=== PATIENT | male | born 1955 | race Caucasian/White ===

== ENCOUNTER 2016-06-19 13:05 | Outpatient (CLI) | payer OTHER | END 2016-06-19 13:06 | disposition home or self-care (01) | DX: I10 Essential (primary) hypertension (principal) ==

== ENCOUNTER 2017-04-02 09:02 | Emergency (ER) | payer OTHER ==
[2017-04-02 09:48] LABS: BASOPHILS % (AUTO) 0.2 %; EOSINOPHILS % (AUTO) 0.2 %; HCT - HEMATOCRIT 49.9 % (42.0-52.0); HGB - HEMOGLOBIN 17.5 g/dL (14.0-18.0); LYMPHOCYTES # (AUTO) 0.9 10^3/uL (1.5-3.5); LYMPHOCYTES % (AUTO) 6.8 %; MEAN CORPUSCULAR HEMOGLOBIN 30.7 pg (27.0-31.0); MEAN CORPUSCULAR VOLUME 87.6 fL (80.0-94.0); MEAN PLATELET VOLUME 7.4 fL (7.4-11.4); MONOCYTES # (AUTO) 0.5 10^3/uL (0.0-1.0); MONOCYTES % (AUTO) 4.1 %; NEUTROPHILS # (AUTO) 11.8 10^3/uL (1.5-6.6); NEUTROPHILS % (AUTO) 88.7 %; RED CELL DISTRIBUTION WIDTH 13.7 % (12.0-15.0); UNCORRECTED WHITE BLOOD COUNT 13.3 x10^3/uL; WHITE BLOOD COUNT 13.3 x10^3/uL (4.8-10.8)
[2017-04-02 10:01] LABS: ALBUMIN/GLOBULIN RATIO 1.6 (1.0-2.2); BILIRUBIN,TOTAL 0.7 mg/dL (0.2-1.0); CALCIUM 9.6 mg/dL (8.5-10.3); POTASSIUM 4.2 mmol/L (3.5-5.0); TOTAL PROTEIN 7.4 g/dL (6.7-8.2)
--- NOTE | 2017-04-02 10:20 | ED Physician Documentation ---
PD HPI ABD PAIN - Stated complaint Stated Complaint: ABD PX - Chief complaint Chief Complaint: Abd Pain PD PAST MEDICAL HISTORY - Past Medical History Past Medical History: Yes Cardiovascular: Hypertension Other Past Medical History: melanoma - Past Surgical History Past Surgical History: Yes Derm: Skin cancer surgery - Present Medications Home Medications: Ambulatory Orders Medication Instructions Recorded Confirmed Carbamazepine [Equetro] 200 mg PO DAILY 04/02/17 04/02/17 Lisinopril 20 mg PO DAILY 04/02/17 04/02/17 Multivitamin [Multiple Vitamins] 1 each PO DAILY 04/02/17 04/02/17 [place]-3 Fatty Acids/Fish Oil 1 cap PO DAILY 04/02/17 04/02/17 [[place]-3 Fish Oil 1,000 mg Sfgl] - Allergies Allergies/Adverse Reactions: Allergies Allergy/AdvReac Type Severity Reaction Status Date / Time No Known Drug Allergies Allergy Verified 04/02/17 09:07 - Social History Does the pt smoke?: No Smoking Status: Never smoker Results - Vitals Vitals: Vital Signs - 24 hr 04/02/17 04/02/17 09:08 11:05 Temperature 36.5 C Heart Rate 85 86 Respiratory 16 15 Rate Blood Pressure 174/94 H 138/74 H O2 Saturation 97 95 Oxygen O2 Source Room air - Labs Labs: Laboratory Tests 04/02/17 04/02/17 04/02/17 09:40 09:40 10:20 WBC 13.3 H RBC 5.70 Hgb 17.5 Hct 49.9 MCV 87.6 MCH 30.7 MCHC 35.0 RDW 13.7 Plt Count 134 MPV 7.4 Neut # 11.8 H Lymph # 0.9 L [place] # 0.5 Eos # 0.0 Baso # 0.0 Absolute Nucleated RBC 0.00 Nucleated RBC % 0.0 Sodium 133 L Potassium 4.2 Chloride 99 L Carbon Dioxide 22 Anion Gap 12.0 BUN 14 Creatinine 1.0 Estimated GFR (MDRD) 76 L Glucose 138 H Calcium 9.6 Total Bilirubin 0.7 AST 25 ALT 31 Alkaline Phosphatase 40 L Total Protein 7.4 Albumin 4.6 Globulin 2.8 Albumin/Globulin Ratio 1.6 Lipase 21 L Urine Color YELLOW Urine Clarity CLEAR Urine pH 6.5 Ur Specific [place] 1.020 Urine Protein NEGATIVE Urine Glucose (UA) NEGATIVE Urine Ketones NEGATIVE Urine Occult Blood TRACE-INTA Urine Nitrite NEGATIVE Urine Bilirubin NEGATIVE Urine Urobilinogen 0.2 (NORMAL) Ur Leukocyte Esterase NEGATIVE Ur Microscopic Review NOT INDICATED Urine Culture Comments NOT INDICATED PD MEDICAL DECISION MAKING - ED course Complexity details: d/w patient ED course: Pt with almost a complete resolution of his presenting symptoms while in the ER. he did urinate w/o problems here. Did have an elevated WBC count but has no signs of infection. Will hold on ABD CT for now. discuss return precautions. Departure - Departure Disposition: 01 Home, Self Care Clinical Impression: Abdominal pain Qualifiers: Abdominal location: generalized Qualified Code(s): R10.84 - Generalized abdominal pain Condition: Good Instructions: ED Abdominal Pain Unkn Cause Follow-Up: primary,care provider [Other] Comments: Return to the ER for any new or worsening symptoms.
[2017-04-02 10:29] LABS: BILIRUBIN,URINE NEGATIVE (NEGATIVE); PH,URINE 6.5 PH (5.0-7.5); UA CHARGE (STRIP ONLY) YES; UR CULTURE IF IND NOT INDICATED
[2017-04-02 11:05] VITALS: BP 138/74
== END 2017-04-02 11:51 | disposition home or self-care (01) ==
LOC: ED 09:02
DX: R10.84 Generalized abdominal pain (principal); D72.829 Elevated white blood cell count, unspecified; I10 Essential (primary) hypertension; Z85.828 Personal history of other malignant neoplasm of skin
CPT/HCPCS: 36415; 80053; 81001; 81003; 83690; 85025; 87086; 99283

== ENCOUNTER 2019-05-05 16:14 | Emergency (ER) | payer OTHER ==
--- NOTE | 2019-05-05 16:26 | ED Physician Documentation ---
PD HPI CHEST PAIN - Stated complaint Stated Complaint: CHEST DISCOMFORT - Chief complaint Chief Complaint: Cardiac - History obtained from History obtained from: Patient - History of Present Illness Timing - onset: Other (63-year-old gentleman with history of hypertension has had waxing and waning chest pain this week. It is never been severe. No history of [place] or coronary disease. He is had some pain between the shoulder blades as well.) Review of Systems Ten Systems: 10 systems reviewed and negative Constitutional: reports: Fatigue. denies: Fever, Chills Throat: denies: Sore throat Cardiac: reports: Chest pain / pressure. denies: Palpitations, Pedal edema Respiratory: denies: Dyspnea PD PAST MEDICAL HISTORY - Past Medical History Past Medical History: Yes Cardiovascular: Hypertension - Past Surgical History Past Surgical History: Yes Derm: Skin cancer surgery - Present Medications Home Medications: Ambulatory Orders Medication Instructions Recorded Confirmed Carbamazepine [Equetro] 200 mg PO DAILY 04/02/17 04/02/17 Lisinopril 20 mg PO DAILY 04/02/17 04/02/17 Multivitamin [Multiple Vitamins] 1 each PO DAILY 04/02/17 04/02/17 [place]-3 Fatty Acids/Fish Oil 1 cap PO DAILY 04/02/17 04/02/17 [[place]-3 Fish Oil 1,000 mg Sfgl] - Allergies Allergies/Adverse Reactions: Allergies Allergy/AdvReac Type Severity Reaction Status Date / Time No Known Drug Allergies Allergy Verified 05/05/19 16:22 - Social History Does the pt smoke?: No Smoking Status: Never smoker - Family History Family history: reports: Non contributory PD ED PE NORMAL - Vitals Vital signs reviewed: Yes - General General: Alert and oriented X 3, No acute distress - HEENT HEENT: PERRL, EOMI - Neck Neck: Supple, no meningeal sign, No bony TTP - Cardiac Cardiac: RRR, No murmur - Respiratory Respiratory: No respiratory distress, Clear bilaterally - Abdomen Abdomen: Soft, Non tender - Back Back: No CVA TTP, No spinal TTP - Derm Derm: Normal color, Warm and dry - Extremities Extremities: No edema, No calf tenderness / cord - Neuro Neuro: Alert and oriented X 3, Normal speech Results - Vitals Vitals: Vital Signs - 24 hr 05/05/19 16:22 Temperature 36.8 C Heart Rate 69 Respiratory 17 Rate O2 Saturation 98 Oxygen O2 Source Room air - EKG (time done) 1619 Rate: Rate (enter#) (71) Rhythm: NSR [place]: Normal Intervals: Normal [place] QRS: LVH Ischemia: Other (Concerning anterior ST elevation with possible reciprocal inferior depression albeit mild, some anterior Q waves as well.) - Labs Labs: Laboratory Tests 05/05/19 05/05/19 05/05/19 16:34 16:34 16:34 WBC 6.3 RBC 5.47 Hgb 16.9 Hct 48.5 MCV 88.7 MCH 30.9 MCHC 34.8 RDW 12.7 Plt Count 156 MPV 8.6 Neut # (Auto) 4.5 Lymph # (Auto) 1.2 L [place] # (Auto) 0.4 Eos # (Auto) 0.1 Baso # (Auto) 0.0 Absolute Nucleated RBC 0.00 Nucleated RBC % 0.0 PT 12.5 INR 1.1 Sodium 135 Potassium 4.1 Chloride 97 L Carbon Dioxide 29 Anion Gap 9.0 BUN 12 Creatinine 1.0 Estimated GFR (MDRD) 75 L Glucose 184 H Calcium 9.2 Total Bilirubin 0.6 AST 22 ALT 23 Alkaline Phosphatase 48 Total Protein 7.2 Albumin 4.5 Globulin 2.7 Albumin/Globulin Ratio 1.7 Lipase 31 PD MEDICAL DECISION MAKING - ED course ED course: 63-year-old gentleman with somewhat atypical symptoms but pretty concerning EKG for an anterior STEMI and a code STEMI was called at approximately 4:25 PM for transport to [facility]. Accepted by Dr. Garcia to [facility] ED at 4:35 PM. Given aspirin, heparin bolus and drip, metoprolol. Departure - Departure Disposition: 02 Transfer Acute Care Hosp Clinical Impression: STEMI (ST elevation myocardial infarction) Qualifiers: Involved coronary artery: unspecified coronary artery Qualified Code(s): I21.3 - ST elevation (STEMI) myocardial infarction of unspecified site Condition: Serious
[2019-05-05] MEDS ORDERED: METOPROLOL TARTRATE 50 MG TABLET PO STA (16:27)
[2019-05-05] MEDS ORDERED: ASPIRIN CHEW 81 MG TABLET PO STA (16:27)
[2019-05-05] MEDS ORDERED: HEPARIN 25000UNITS/500ML (D5W) 25,000 UNIT/500 ML BAG IV STA (16:27)
[2019-05-05 16:43] LABS: BASOPHILS % (AUTO) 0.2 %; EOSINOPHILS # (AUTO) 0.1 10^3/uL (0.0-0.7); HGB - HEMOGLOBIN 16.9 g/dL (14.0-18.0); LYMPHOCYTES # (AUTO) 1.2 10^3/uL (1.5-3.5); LYMPHOCYTES % (AUTO) 19.8 %; MEAN CORPUSCULAR HEMOGLOBIN 30.9 pg (27.0-31.0); MEAN CORPUSCULAR HGB CONC 34.8 g/dL (32.0-36.0); MEAN CORPUSCULAR VOLUME 88.7 fL (80.0-94.0); MEAN PLATELET VOLUME 8.6 fL (7.4-11.4); MONOCYTES # (AUTO) 0.4 10^3/uL (0.0-1.0); MONOCYTES % (AUTO) 6.9 %; NEUTROPHILS # (AUTO) 4.5 10^3/uL (1.5-6.6); NEUTROPHILS % (AUTO) 71.6 %; PLT - PLATELET COUNT 156 10^3/uL (130-450); RED BLOOD COUNT 5.47 10^6/uL (4.70-6.10); RED CELL DISTRIBUTION WIDTH 12.7 % (12.0-15.0); WHITE BLOOD COUNT 6.3 x10^3/uL (4.8-10.8)
[2019-05-05 16:44] LABS: INR 1.1 (0.8-1.2); PT - PROTHROMBIN TIME 12.5 secs (9.9-12.6)
[2019-05-05 16:56] LABS: ALBUMIN 4.5 g/dL (3.2-5.5); ALBUMIN/GLOBULIN RATIO 1.7 (1.0-2.2); BILIRUBIN,TOTAL 0.6 mg/dL (0.2-1.0); CALCIUM 9.2 mg/dL (8.5-10.3); TOTAL PROTEIN 7.2 g/dL (6.7-8.2)
[2019-05-05 17:07] VITALS: BP 185/96
== END 2019-05-05 17:11 | disposition short-term general hospital (02) ==
LOC: ED 16:14
DX: I21.3 ST elevation (STEMI) myocardial infarction of unspecified site (principal); I10 Essential (primary) hypertension
CPT/HCPCS: 36415; 80053; 83690; 84484; 85025; 85610; 93005; 96374; 96375; 99285; A9270

== ENCOUNTER 2019-05-05 16:57 | Outpatient (CLI) | payer OTHER | END 2019-05-05 16:58 | disposition short-term general hospital (02) | LOC: EMS 16:57 | PROVIDERS: ATTEND Surgery | DX: I21.09 ST elevation (STEMI) myocardial infarction involving other coronary artery of anterior wall (principal) | CPT/HCPCS: A0425; A0426 ==

== ENCOUNTER 2019-11-19 21:33 | Emergency (ER) | payer OTHER ==
--- NOTE | 2019-11-19 21:51 | ED Physician Documentation ---
PD HPI DYSPNEA - Stated complaint Stated Complaint: SOA - Chief complaint Chief Complaint: Resp - History obtained from History obtained from: Patient, Family (spouse) - History of Present Illness Timing - onset: Today (morning of 11/19/2019) Timing - onset during: Light activity Timing - details: Gradual onset, Constant, Still present in ED Pain level now: 5 (right hip and back pain (not new; due to bony metastases)) Associated symptoms: No: Fever, Cough, Hemoptysis, Wheezing, Chest pain / discomfort, Palpitations, Diaphoresis Similar symptoms before: Work up / diagnostics (recent visits to ED (3 times in October,), most recent 11/14, w/u included findings of bilateral pleural effusions, small pericardial effusion, 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 Initially BEY but this evening, he is dyspneic even at rest. He says he has had similar "reaction" to his previous (and first) dose of immunotherapy a few weeks ago. His most recent (second) dose was . Patient was diagnosed with RLE melanoma 1996, recurred same area 2016. September of 2019 was found to have metastases to thoracic spine and lung. Recent testing at suggest other areas of metastases as noted above. Patient does not have pulmonary past medical history except for masses, does not use oxygen at home. He was transferred to [facility] from [facility] ED April 2019 for possible CAD but patient says he had negative nuclear stress test. He was started on lasix 11/14, rx from ED. Review of Systems Constitutional: denies: Fever, Chills, Sweats Eyes: reports: Reviewed and negative Ears: reports: Reviewed and negative Nose: reports: Reviewed and negative Throat: reports: Reviewed and negative Cardiac: reports: Reviewed and negative Respiratory: reports: Dyspnea. denies: Cough, Hemoptysis, Wheezing GI: reports: Abdominal Swelling, Constipation. denies: Abdominal Pain, Nausea, Vomiting : denies: Dysuria, Frequency Musculoskeletal: reports: Back pain, Joint pain (right hip) Neurologic: reports: Reviewed and negative PD PAST MEDICAL HISTORY - Past Medical History Cardiovascular: Hypertension - Past Surgical History Past Surgical History: Yes Derm: Skin cancer surgery - Present Medications Home Medications: Ambulatory Orders Medication Instructions Recorded Confirmed Carbamazepine [Equetro] 200 mg PO DAILY 04/02/17 04/02/17 Multivitamin [Multiple Vitamins] 1 each PO DAILY 04/02/17 04/02/17 [place]-3 Fatty Acids/Fish Oil 1 cap PO DAILY 04/02/17 04/02/17 [[place]-3 Fish Oil 1,000 mg Sfgl] lisinopriL [Lisinopril] 20 mg PO DAILY 04/02/17 04/02/17 - Allergies Allergies/Adverse Reactions: Allergies Allergy/AdvReac Type Severity Reaction Status Date / Time No Known Drug Allergies Allergy Verified 11/19/19 21:37 - Social History Does the pt smoke?: No Smoking Status: Never smoker PD ED PE NORMAL - Vitals Vital signs reviewed: Yes - General General: Alert and oriented X 3, No acute distress (NAD at rest although dyspneic with conversation, parses sentences due to dyspnea when speaking), Well developed/nourished - HEENT HEENT: PERRL, EOMI, Moist mucous membranes - Neck Neck: Supple, no meningeal sign - Cardiac Cardiac: No murmur - Respiratory Respiratory: No respiratory distress (but becomes dyspneic when talking) - Abdomen Abdomen: Soft, Non tender - Back Back: No CVA TTP - Derm Derm: Normal color, Warm and dry - Neuro Neuro: Alert and oriented X 3 Eye Opening: Spontaneous Motor: Obeys Commands Verbal: Oriented GCS Score: 15 PD ED PE EXPANDED - Cardiac Cardiac: Tachy, Regular Rhythm - Respiratory Respiratory: Rales (bibasilar) - Extremities Extremities: Pedal edema bilateral (mild) Results - Vitals Vitals: Vital Signs - 24 hr 11/19/19 11/19/19 11/19/19 21:37 21:52 22:35 Temperature 37.3 C 37.3 C Heart Rate 116 H 110 H Respiratory 22 14 Rate Blood Pressure 175/90 H 167/92 H O2 Saturation 91 L 95 90 L 11/19/19 11/20/19 11/20/19 23:27 01:01 02:50 Temperature Heart Rate 108 H 111 H 113 H Respiratory 36 H 20 16 Rate Blood Pressure 165/90 H 170/93 H 157/80 H O2 Saturation 96 95 93 Oxygen O2 Source Room air Oxygen Flow Rate 3 - EKG (time done) No standard instances Rate: Rate (enter#) (111) Rhythm: Sinus tachycardia, LAE Mccormick: LAD Intervals: Normal [place] QRS: Normal Ischemia: Normal ST segments - Labs Labs: Laboratory Tests 11/19/19 11/19/19 11/19/19 22:35 22:35 22:35 WBC 6.1 RBC 4.84 Hgb 12.1 L Hct 38.7 L MCV 80.0 MCH 25.0 L MCHC 31.3 L RDW 16.7 H Plt Count 116 L MPV 9.3 Neut # (Auto) 4.9 Lymph # (Auto) 0.6 L [place] # (Auto) 0.4 Eos # (Auto) 0.1 Baso # (Auto) 0.0 Absolute Nucleated RBC 0.00 Nucleated RBC % 0.0 Sodium 129 L Potassium 4.9 Chloride 96 L Carbon Dioxide 19 L Anion Gap 14.0 H BUN 13 Creatinine 0.7 Estimated GFR (MDRD) 114 Glucose 141 H Calcium 8.5 Total Bilirubin 0.6 AST 18 ALT 16 Alkaline Phosphatase 130 H Troponin I High Sens B-Natriuretic Peptide 200 H Total Protein 5.8 L Albumin 3.2 Globulin 2.6 Albumin/Globulin Ratio 1.2 Lipase 190 H 11/19/19 22:35 WBC RBC Hgb Hct MCV MCH MCHC RDW Plt Count MPV Neut # (Auto) Lymph # (Auto) [place] # (Auto) Eos # (Auto) Baso # (Auto) Absolute Nucleated RBC Nucleated RBC % Sodium Potassium Chloride Carbon Dioxide Anion Gap BUN Creatinine Estimated GFR (MDRD) Glucose Calcium Total Bilirubin AST ALT Alkaline Phosphatase Troponin I High Sens 9.3 B-Natriuretic Peptide Total Protein Albumin Globulin Albumin/Globulin Ratio Lipase - Rads (name of study) chest xray Radiology: Prelim report reviewed, See rad report PD MEDICAL DECISION MAKING - ED course Complexity details: reviewed old records (records from ED visits faxed and reviewed), reviewed results, re-evaluated patient, considered differential, d/w patient ED course: records from ED reviewed; patient had not been hypoxic on these visits but on tonight's visit his pulse ox is 90% on room air. His chest xray is interpreted as "bilateral lower lung zone ill-defined opacities", "bibasial atelectasis and/or pneumonia", but given the CT chest from 11/14 demonstrated bilateral pleural effusions, it is likely that tonight's xrays and patient's dyspnea and hypoxia are likely due to progression of effusions. The CT chest 11/14 also noted to be negative for evidence of PE. Patient's pulse ox and dyspnea improved with supplemental oxygen. At this point, he would benefit from admission for further testing and treatment, possibly to include echo. As echocardiography is not available at [facility] through the weekend, patient would benefit from transfer, and he prefers [facility] if appropriate. D/W Dr. Rosenberg at [facility], accepts for transfer. I discussed code status with patient while was at bedside. He indicates he has not formally had this discussion previously, and that at this time he would like any and all appropriate measures taken including CPR, intubation, defibrillation, but would want treatment withdrawn if "I was just going to be a vegetable". Departure - Departure Disposition: 02 Transfer Acute Care Hosp Clinical Impression: Pleural effusion, Hypoxia Dyspnea Qualifiers: Dyspnea type: shortness of breath Qualified Code(s): R06.02 - Shortness of b reath Condition: Stable Discharge Date/Time: 11/20/19 03:23
[2019-11-19 22:49] LABS: BASOPHILS % (AUTO) 0.3 %; EOSINOPHILS # (AUTO) 0.1 10^3/uL (0.0-0.7); EOSINOPHILS % (AUTO) 2.1 %; HGB - HEMOGLOBIN 12.1 g/dL (14.0-18.0); LYMPHOCYTES # (AUTO) 0.6 10^3/uL (1.5-3.5); LYMPHOCYTES % (AUTO) 9.8 %; MEAN CORPUSCULAR HGB CONC 31.3 g/dL (32.0-36.0); MEAN PLATELET VOLUME 9.3 fL (7.4-11.4); MONOCYTES # (AUTO) 0.4 10^3/uL (0.0-1.0); MONOCYTES % (AUTO) 6.9 %; NEUTROPHILS # (AUTO) 4.9 10^3/uL (1.5-6.6); NEUTROPHILS % (AUTO) 80.2 %; PLT - PLATELET COUNT 116 10^3/uL (130-450); RED BLOOD COUNT 4.84 10^6/uL (4.70-6.10); RED CELL DISTRIBUTION WIDTH 16.7 % (12.0-15.0); WHITE BLOOD COUNT 6.1 x10^3/uL (4.8-10.8)
[2019-11-19 23:23] LABS: ALBUMIN 3.2 g/dL (3.2-5.5); ALBUMIN/GLOBULIN RATIO 1.2 (1.0-2.2); BILIRUBIN,TOTAL 0.6 mg/dL (0.2-1.0); CALCIUM 8.5 mg/dL (8.5-10.3); CREATININE 0.7 mg/dL (0.6-1.2); TOTAL PROTEIN 5.8 g/dL (6.7-8.2)
[2019-11-19] MEDS ORDERED: HYDROmorphone 1 MG/ML CARPUJECT IVP STA (23:37)
[2019-11-19] MEDS ORDERED: ONDANSETRON 4 MG/2 ML VIAL IVP STA (23:37)
[2019-11-20] MEDS ORDERED: FUROSEMIDE 40 MG/4 ML VIAL IVP STA (00:22)
[2019-11-20 02:51] VITALS: BP 157/80
--- NOTE | 2019-11-20 08:57 | XRAY Report ---
PROCEDURE: Chest 2 View X-Ray INDICATIONS: dyspnea TECHNIQUE: 2 view(s) of the chest. COMPARISON: None. FINDINGS: Surgical changes and devices: Multilevel cervical thoracic compliance professional lateral fusion with corpectomy and vertebral body prosthesis placed at approximately T4. There has been percutaneous cement fixation of T2, T3, T5, and T6. Lungs and pleura: There is bibasilar atelectasis and there is a small left pleural effusion. Mediastinum: Heart size is within normal limits. Enlarged central pulmonary hilar vessels are consist ent with pulmonary arterial hypertension. Bones and chest wall: No suspicious bony abnormalities. Soft tissues appear unremarkable. IMPRESSION: 1. Findings suggest pulmonary arterial hypertension. 2. Bibasilar atelectasis and left pleural effusion. A preliminary report was provided at the time of the study by [facility]. Reviewed by: Yony Smith MD on 11/20/2019 7:55 AM [place] Approved by: Yony Smith MD on 11/20/2019 7:55 AM [place] Station ID: [id number]
== END 2019-11-20 03:23 | disposition short-term general hospital (02) ==
LOC: ED 21:33
DX: J90 Pleural effusion, not elsewhere classified (principal); R09.02 Hypoxemia; R00.0 Tachycardia, unspecified; C78.00 Secondary malignant neoplasm of unspecified lung; C79.51 Secondary malignant neoplasm of bone; Z85.820 Personal history of malignant melanoma of skin; I10 Essential (primary) hypertension
CPT/HCPCS: 36415; 71046; 80053; 83690; 83880; 84484; 85025; 93005; 96374; 96375; 99284; 99285; J1170

== ENCOUNTER 2019-11-20 03:28 | Outpatient (CLI) | payer OTHER | END 2019-11-20 03:29 | disposition short-term general hospital (02) | LOC: EMS 03:28 | PROVIDERS: ATTEND Surgery | DX: R06.02 Shortness of breath (principal) | CPT/HCPCS: A0425; A0426 ==